=== PATIENT | female | born 1955 | race Caucasian/White ===

== ENCOUNTER 2021-05-11 15:37 | Observation (INO) ==
[2021-05-11] MEDS ORDERED: Clindamycin 600 MG/D5W BAG 600 MG/50 ML BAG IV ONE (16:22)
[2021-05-11] MEDS ORDERED: Tetan/Diph/Pertus SYR(Tdap) 0.5 ML SYR(BOOSTRIX) use SYR contains LATEX IM ONE (16:34)
[2021-05-11 17:09] LABS: ABS Lymphocytes 0.6 10^3/ul (1.0-4.8); ABS Monocytes 1.1 10^3/ul (0-0.8); ABS Neutrophils 11.3 10^3/ul (1.5-7.7); Hematocrit 36 % (35-47); Hemoglobin 12.1 g/dL (12.0-16.0); Lymphocyte % 4.3 %; Mean Corpuscular HGB Conc 33 g/dL (31-36); Mean Corpuscular Hemoglobin 32 pg (27-31); Mean Corpuscular Volume 96 fL (80-97); Mean Platelet Volume 8.9 fL (7.4-10.4); Platelet Count 222 10^3/uL (150-450); Red Blood Count 3.79 10^6 /uL (3.70-4.87); Red Cell Distribution Width 14 % (10-15)
[2021-05-11 17:27] LABS: Albumin 4.5 g/dL (3.2-5.2); Albumin/Globulin Ratio 1.8 (1-3); C Reactive Protein 85.93 mg/L (<8.01); Calcium 9.5 mg/dL (8.6-10.3); EGFR African American 110.3 (>60); EGFR Non-African American 91.2 (>60); Globulin 2.5 g/dL (2-4); Potassium 3.7 mmol/L (3.5-5.0); Total Bilirubin 0.7 mg/dL (0.2-1.0)
[2021-05-11] MEDS ORDERED: NS 0.9% 1000 ml BAG 1,000 ML IV ONE (17:28)
[2021-05-11] MEDS ORDERED: oxyCODONE/Acetamin 5/325 mg TAB PO PRN (18:58)
[2021-05-11] MEDS: Levofloxacin 750 MG IVPREMIX 750 MG/150 ML BAG IVPB SCH (21:47)
[2021-05-11] MEDS ORDERED: metroNIDAZOLE IV 500 MG/100ML 500 MG/100 ML BAG IVPB SCH (22:00)
[2021-05-12 06:32] LABS: ABS Lymphocytes 0.7 10^3/ul (1.0-4.8); ABS Monocytes 0.8 10^3/ul (0-0.8); ABS Neutrophils 6.5 10^3/ul (1.5-7.7); Hematocrit 33 % (35-47); Hemoglobin 11.5 g/dL (12.0-16.0); Lymphocyte % 8.3 %; Mean Corpuscular HGB Conc 35 g/dL (31-36); Mean Corpuscular Hemoglobin 33 pg (27-31); Mean Corpuscular Volume 94 fL (80-97); Mean Platelet Volume 8.6 fL (7.4-10.4); Nucleated Red Blood Cells % 0.1; Platelet Count 206 10^3/uL (150-450); Red Blood Count 3.53 10^6 /uL (3.70-4.87); Red Cell Distribution Width 13 % (10-15)
[2021-05-12 06:49] LABS: C Reactive Protein 123.86 mg/L (<8.01); Calcium 9.3 mg/dL (8.6-10.3); EGFR African American 112.3 (>60); EGFR Non-African American 92.8 (>60)
[2021-05-12] MEDS: metroNIDAZOLE IV 500 MG/100ML 500 MG/100 ML BAG IVPB SCH ×3 (08:25→23:58)
[2021-05-12] MEDS: Levofloxacin 750 MG IVPREMIX 750 MG/150 ML BAG IVPB SCH (20:37)
[2021-05-13 05:09] LABS: ABS Lymphocytes 0.9 10^3/ul (1.0-4.8); ABS Neutrophils 5.9 10^3/ul (1.5-7.7); Hematocrit 33 % (35-47); Hemoglobin 11.4 g/dL (12.0-16.0); Lymphocyte % 11.2 %; Mean Corpuscular HGB Conc 34 g/dL (31-36); Mean Corpuscular Hemoglobin 32 pg (27-31); Mean Corpuscular Volume 95 fL (80-97); Mean Platelet Volume 8.8 fL (7.4-10.4); Nucleated Red Blood Cells % 0.1; Platelet Count 190 10^3/uL (150-450); Red Blood Count 3.51 10^6 /uL (3.70-4.87); Red Cell Distribution Width 13 % (10-15); White Blood Count 7.8 10^3/uL (3.5-10.8)
[2021-05-13 05:31] LABS: C Reactive Protein 105.8 mg/L (<8.01); Calcium 9.3 mg/dL (8.6-10.3); EGFR African American 98.1 (>60); Potassium 3.9 mmol/L (3.5-5.0)
[2021-05-13] MEDS: metroNIDAZOLE IV 500 MG/100ML 500 MG/100 ML BAG IVPB SCH (07:28)
[2021-05-13 11:39] VITALS: BP 118/64
== END 2021-05-13 12:33 | disposition home or self-care (01) ==
LOC: MEDTELE 15:37 → ED 15:37 → MEDTELE 21:01
PROVIDERS: ADMIT Internal Medicine; ATTEND Internal Medicine